=== PATIENT | male | born 1990 | race Two or more races ===

== ENCOUNTER 2020-07-09 22:01 | Emergency (ER) | payer OTHER ==
[~2020-07-09] VITALS: Ht 167.6 cm; Wt 70.3 kg
[2020-07-09 22:01] VITALS: BP 112/63
[2020-07-09] MEDS ORDERED: IBUPROFEN 600 MG TABLET ONE (22:42)
[2020-07-09] MEDS: IBUPROFEN 600 MG TABLET PO ONE (22:45)
--- NOTE | 2020-07-09 22:45 | NUR ---
Pt is medically cleared for incarceration and released under the care of [employer] officers. pt is in stable condition. pt is ambulatory on steady gait.
== END 2020-07-09 22:48 ==
LOC: ER 22:03
DX: M79.641 Pain in right hand (principal); M79.644 Pain in right finger(s)